=== PATIENT | female | born 1960 | race Caucasian/White ===

== ENCOUNTER → 2017-03-26 | Outpatient (REF) ==
[2017-03-26 11:13] LABS: THYROID STIMULATING HORMONE 1.36 uIU/mL (0.465-4.680)
== END ==
LOC: ZLAB.WCH 10:26
PROVIDERS: Family Medicine
DX: Z01.89 Encounter for other specified special examinations (principal)

== ENCOUNTER → 2017-07-07 | Outpatient (CLI) | payer BC | LOC: MC.RAD 07:00 | DX: Z12.31 Encounter for screening mammogram for malignant neoplasm of breast (principal) ==

== ENCOUNTER → 2018-06-10 | Outpatient (REF) ==
[2018-06-10 16:59] LABS: THYROID STIMULATING HORMONE 0.597 uIU/mL (0.465-4.680)
== END ==
LOC: ZLAB.WCH 16:06
PROVIDERS: Family Medicine
DX: Z01.89 Encounter for other specified special examinations (principal)

== ENCOUNTER → 2018-08-09 | Outpatient (CLI) | payer BC | LOC: MC.RAD 07:00 | DX: Z12.31 Encounter for screening mammogram for malignant neoplasm of breast (principal) ==

== ENCOUNTER → 2019-08-24 | Outpatient (CLI) | payer BC | LOC: MC.RAD 07:15 | DX: Z12.31 Encounter for screening mammogram for malignant neoplasm of breast (principal); N64.89 Other specified disorders of breast ==

== ENCOUNTER → 2020-08-27 | Outpatient (CLI) | payer BC | LOC: MC.RAD 08:38 | DX: Z12.31 Encounter for screening mammogram for malignant neoplasm of breast (principal) ==

== ENCOUNTER → 2021-09-11 | Outpatient (CLI) | payer BC | LOC: MC.RAD 08:15 | DX: Z12.31 Encounter for screening mammogram for malignant neoplasm of breast (principal) ==

== ENCOUNTER → 2022-10-20 | Outpatient (CLI) | payer BC | LOC: MC.RAD 08:24 | DX: Z12.31 Encounter for screening mammogram for malignant neoplasm of breast (principal) ==

== ENCOUNTER → 2023-10-28 | Outpatient (CLI) | payer BC | LOC: MC.RAD 08:11 | DX: Z12.31 Encounter for screening mammogram for malignant neoplasm of breast (principal) ==

== ENCOUNTER 2023-12-13 15:35 | Inpatient (IN) | payer BC ==
[~2023-12-13] VITALS: Ht 162.6 cm; Wt 55.6 kg
[2023-12-13] MEDS ORDERED: Midazolam 2 MG/2 ML VIAL IV ONE (16:30)
[2023-12-13] MEDS ORDERED: Ondansetron 4 MG/2 ML VIAL IV ONE (16:45)
[2023-12-13] MEDS ORDERED: HYDROmorphone 0.5 MG/0.5 ML SYRINGE IV ONE (16:45)
[2023-12-13] MEDS ORDERED: EUTHYROX25 MCG PO (18:26)
[2023-12-13] MEDS ORDERED: Morphine 4 MG/ML VIAL IV PRN (18:30)
[2023-12-13] MEDS ORDERED: Ondansetron 4 MG/2 ML VIAL IV PRN (18:30)
[2023-12-13 19:57] VITALS: BP 127/71; PULSE 79; TEMP 98.6
--- NOTE | 2023-12-13 19:57 | NUR ---
pt arrived to room 327 from ED at 1930. pt ambulated to bed without issue. chest tube hooked up to continuous suction. physical assessment complete. family at bedside. pt reports increased pain but states the ER just gave her prn medication to relieve it. call light in reach. all needs met at this time.
--- NOTE | 2023-12-13 23:26 | NUR ---
pt c/o increased left chest pain d/t chest tube. pt rated 5/10. prn norco administered per orders. fall precautions in place. call light in reach. all needs met at this time.
[2023-12-14] VITALS (9 sets, daily range): BP systolic 111–121; BP diastolic 61–71; PULSE 64–79; TEMP 97.8–98.7
--- NOTE | 2023-12-14 02:38 | NUR ---
THIS RT TITRATIED PT FROM 0.5L TO RA, PT DORA WELL W/ SAT OF 97%. RT INFORMED RN AND RN STATED THAT PT MUST BE ON 2L PER PT'S DR. RT PLACED PT BACK ON 2L.
--- NOTE | 2023-12-14 07:16 | NUR ---
Pt doing okay this morning. States pain isn't too bad when she isn't moving. She did state that her pain overall is better than yesterday. Pt has ordered her breakfast. Assisted her with washing face etc. No other needs, call light within reach
--- NOTE | 2023-12-14 09:00 | NUR ---
Pt doing okay this morning. She is slow to speak or move due to the left chest pain. Pt stated that even with movement, pain is tolerable. Assisted pt up to the sink to brush teeth. Assisted her to the restroom and gave her bath wipes to clean up. Pt was steady on her feet. Lung sounds diminished due to her not being able to take deep breaths due to the pain. No other needs at this time, will continue to monitor
--- NOTE | 2023-12-14 11:21 | NUR ---
Robotics Mechanic met with patient at bedside to discuss discharge planning, she consented to have brother remain present for discussion. Pt verified that she lives in [facility] alone, with a [place] address. Patient lists her son Dhruv ([phone]) as her DPOA and lists her son Paul ([phone]) as contact. Patient sees Dr. Andino as her PCP and uses [facility]. Patient is independent with all activities and uses no DME. Patient plans to return home at time of discharge and states she plans to board her dog for a while as she will not be able to care for him with her injuries. No discharge needs identified at this time. Discharge plan: Home
--- NOTE | 2023-12-14 13:48 | NUR ---
D: Initial visit: Crown Perforator Operator stopped by room on rounds. Pt was resting and content with niece in the room. A: Pt has no needs right now. Pt appreciated the visit. P: Crown Perforator Operator informed pt that if she needed anything from the intraoperative neuro tech area to let her nurse know. Crown Perforator Operator will follow up as needed.
--- NOTE | 2023-12-14 14:22 | NUR ---
Received report from AMINA Marie.
--- NOTE | 2023-12-14 14:30 | NUR ---
Report given to AMINA Hobbs. Pt doing well. Reports pain is better since getting pain medication. Educated how often she can have it and that she will be assessed for pain, but can also ask for pain medication when she feels she needs it. No other needs
--- NOTE | 2023-12-14 14:42 | NUR ---
Pt sitting up in bed. A&Ox4. VSS. S1S2. Clear lung sounds, slightly diminished in LLL. ABD is round, soft, non-tender with audible bowel sounds. Palpable pulses and normal strength in all extremities. IV in R Hand is patent and INT. Pt is on 1/2 L oxygen via NC. Encouraged Pt to use IS and educated Pt on IS. Chest Tube in place in Upper left chest. Dressing is CDI. Chest tube is hooked up to suction -20. Minimal seroussanginous drainage in chamber - Cynthia said it was not new. Pt denies headache, dizziness, n/v. Pt reports achy pain 1/10 on left flank when taking deep breaths. Pt reports sitting up helps relieve pain. No further needs at this time. Pt has call light in reach and bed alarm on.
--- NOTE | 2023-12-14 16:22 | NUR ---
Pt ambulated to bathroom. Minbimal assistance required (managing Chest tube). Pt voided - clear, yellow. Pt ambulated back to bed. Pt sitting up in bed. Call light in reach and bed alarm on.
--- NOTE | 2023-12-14 19:01 | NUR ---
report received from nancy calzada. pt resting in bed on the phone with family. pt reports her earlier prn dose has relieved her pain. fall precautions in place. call light in reach. all needs met at this time.
--- NOTE | 2023-12-14 20:32 | NUR ---
shift assessment complete, see documentation. pt tolerating pain well. pt doing well with breathing exercises and taking her time to finish sentences. fall precautions in place. call light in reach. all needs met at this time.
[2023-12-15] VITALS (7 sets, daily range): BP systolic 113–139; BP diastolic 59–72; PULSE 63–67; TEMP 97.5–98.3
--- NOTE | 2023-12-15 02:57 | NUR ---
pt c/o increased left sided chest pain. prn norco administered per orders. fall precautions in place. call light in reach. all needs met at this time.
--- NOTE | 2023-12-15 03:58 | NUR ---
pt chest tube now on water seal. pt tolerating well.
[2023-12-15] MEDS ORDERED: NORCO 325 MG-51 TAB PO (08:42)
--- NOTE | 2023-12-15 09:58 | NUR ---
PATIENT ALERT AND ORIENTED X4. VSS. PATIENT HERE FOR LEFT RIB FRACTURE/ PNEUMO. CHEST TUBE TO WATERSEAL WITH NO DRAIAINAGE. PATIENT REPORTS PAIN IN LEFT RIBS, RATING PAIN 6/10, REQUESTS PAIN MEDICATION. IV TO RIGHT HAND INT AND FLUSHES WELL. PATIENT REPORTS MILD NAUSEA, ZOFRAN ADMINISTERED. PATIENT RESTING IN BED, CALL LIGHT IN REACH. BED ALARM ON.
--- NOTE | 2023-12-15 10:48 | NUR ---
DISCHARGE INSTRUCTIONS PROVIDED. PATIENT EDUCATION GIVEN. IV DC'D. FOLLOW UP APPOINTMENT DISCUSSED. MEDICATION REVIEWED. PATIENT DENIES ANY QUESTIONS OR CONCERNS.
--- NOTE | 2023-12-15 12:27 | NUR ---
PATIENT ESCORTED OUT WITH BELONGINGS VIA WHEELCHAIR.
== END 2023-12-15 12:27 | disposition home or self-care (01) | DRG 200 ==
LOC: COL.ER 15:35 → SURG 17:41
PROVIDERS: ADMIT Surgery
PROC: 0W9B30Z Drainage of Left Pleural Cavity with Drainage Device, Percutaneous Approach (ICD-10-PCS; principal; 2023-12-13)
DX: S27.0XXA Traumatic pneumothorax, initial encounter (principal); S22.42XA Multiple fractures of ribs, left side, initial encounter for closed fracture; E03.9 Hypothyroidism, unspecified; W01.0XXA Fall on same level from slipping, tripping and stumbling without subsequent striking against object, initial encounter; Y93.89 Activity, other specified; Y92.091 Bathroom in other non-institutional residence as the place of occurrence of the external cause; Z90.710 Acquired absence of both cervix and uterus; Z90.49 Acquired absence of other specified parts of digestive tract; Z98.51 Tubal ligation status
CPT/HCPCS: A7041; A9284; J1170; J2250; J2270; J2405